=== PATIENT | male | born 1940 | race African-American/Black ===

== ENCOUNTER 2019-07-21 09:42 | Inpatient (IN) | payer MEDICARE, MEDICAID ==
[~2019-07-21] VITALS: Ht 175.3 cm; Wt 66.9 kg
[2019-07-21] MEDS ORDERED: SODIUM CHLORIDE 0.9% 1,000 ML IV ONE ×2 (09:57)
[2019-07-21] MEDS ORDERED: LIDOCAINE 1%/EPI 1:100,000 10 ML VIAL IJ ONE (10:00)
[2019-07-21] MEDS ORDERED: TETANUS, DIPHTHERIA, PERTUSSIS VAC/PF 0.5ML (>7YR OLD) IM ONE (10:00)
[2019-07-21] MEDS ORDERED: LIDOCAINE HCL/EPINEPHRINE 1%-EPI 1:100,000 20 ML VIAL INFIL NR (10:15)
[2019-07-21 10:21] LABS: BASOPHILS % 0.8 % (0.0-2.0); EOSINOPHILS % 0.5 % (0.0-5.0); HEMATOCRIT. 39.6 % (42.0-52.0); HEMOGLOBIN. 12.7 g/dL (14.0-18.0); LYMPHOCYTES % 27.9 % (20.0-50.0); MEAN CORPUSCULAR HEMOGLOBIN 26.7 pg (28.0-32.0); MEAN CORPUSCULAR VOLUME 83.1 fL (80.0-94.0); MEAN PLATELET VOLUME 8.3 fl (7.4-10.4); MONOCYTES % 6.8 % (2.0-8.0); PLATELET 196 x1000/uL (130-400); RED BLOOD CELL COUNT 4.77 mill/uL (4.7-6.1); RED CELL DISTRIBUTION WIDTH 18.7 % (11.6-14.6)
[2019-07-21 10:27] LABS: CHLORIDE 110 mEq/L (98-107)
[2019-07-21 10:28] LABS: INR 1.2; PROTHROMBIN TIME 12.7 sec (9.6-11.0)
[2019-07-21 10:31] LABS: ETHANOL BLOOD < 10 mg/dL
[2019-07-21 10:38] LABS: CREATINE KINASE 31 IU/L (39-308)
[2019-07-21 12:36] LABS: CLARITY URINE CLEAR (CLEAR); COLOR URINE YELLOW (YELLOW); KETONES URINE NEGATIVE (NEGATIVE); LEUKOCYTE ESTERASE URINE NEGATIVE (NEGATIVE); NITRITE URINE NEGATIVE (NEGATIVE); OCCULT BLOOD URINE NEGATIVE (NEGATIVE); PH URINE 6.5 (4.5-8.0); PROTEIN URINE NEGATIVE (NEGATIVE); SPECIFIC GRAVITY URINE 1.015 (1.005-1.030)
[2019-07-21 13:00] LABS: *AMPHETAMINES SCREEN URINE NEGATIVE (NEGATIVE); *BARBITURATES SCREEN URINE NEGATIVE (NEGATIVE)
[2019-07-21 13:01] LABS: *BENZODIAZEPINES SCREEN URINE NEGATIVE (NEGATIVE); CANNABINOID URINE SCREEN NEGATIVE (NEGATIVE); OPIATES URINE SCREEN NEGATIVE (NEGATIVE); PHENCYCLIDINE URINE SCREEN NEGATIVE (NEGATIVE)
[2019-07-21 13:02] LABS: *COCAINE SCREEN URINE NEGATIVE (NEGATIVE)
[2019-07-21 13:04] LABS: METHADONE URINE SCREEN NEGATIVE (NEGATIVE)
[2019-07-21] MEDS ORDERED: MORPHINE SULFATE 2 MG/ML CPJ (NOT FOR IM USE) IV PRN (14:30)
[2019-07-21] MEDS ORDERED: ONDANSETRON HCL 4MG/2ML INJ IV PRN (14:30)
[2019-07-21] MEDS ORDERED: DOCUSATE SODIUM 100MG CAPSULE PO PRN (14:30)
[2019-07-21] MEDS ORDERED: CLONIDINE 0.1MG TABLET PO PRN (14:30)
[2019-07-21] MEDS ORDERED: ACETAMINOPHEN 325MG TABLET PO PRN (14:30)
[2019-07-21] MEDS ORDERED: MAGNESIUM/ALUMINUM HYDROXIDE/SIMETHICONE 30ML UDC PO PRN (14:30)
[2019-07-21] MEDS ORDERED: HYDROCODONE/ACETAMINOPHEN 5/325MG TABLET PO PRN (14:30)
[2019-07-21] MEDS: SODIUM CHLORIDE 0.9% 1,000 ML IV SCH (14:44)
[2019-07-21 20:55] VITALS: BP 150/82
[2019-07-22] VITALS: BP 128/67
[2019-07-22] MEDS ORDERED: FERR325T6 PO (02:37)
[2019-07-22] MEDS ORDERED: DIVA-75 PO (02:37)
[2019-07-22] MEDS ORDERED: METO25TA6 PO (02:37)
[2019-07-22] MEDS ORDERED: FLUO10TA3 PO (02:37)
[2019-07-22] MEDS ORDERED: SACC250C9 PO (02:37)
[2019-07-22] MEDS ORDERED: CELE-84 PO (02:37)
[2019-07-22] MEDS ORDERED: LEVO75TA7 PO (02:37)
[2019-07-22] MEDS ORDERED: QUET200T29 PO (02:37)
[2019-07-22 04:00] VITALS: BP 128/66
[2019-07-22] MEDS: SODIUM CHLORIDE 0.9% 1,000 ML IV SCH (05:11)
[2019-07-22 07:17] LABS: BASOPHILS % 0.7 % (0.0-2.0); EOSINOPHILS % 0.8 % (0.0-5.0); HEMATOCRIT. 37.9 % (42.0-52.0); HEMOGLOBIN. 12.4 g/dL (14.0-18.0); LYMPHOCYTES % 28.8 % (20.0-50.0); MEAN CORPUSCULAR HEMOGLOBIN 27.1 pg (28.0-32.0); MEAN CORPUSCULAR VOLUME 82.7 fL (80.0-94.0); MEAN PLATELET VOLUME 8.4 fl (7.4-10.4); MONOCYTES % 8.2 % (2.0-8.0); NEUTROPHILS % 61.5 % (40.0-76.0); PLATELET 175 x1000/uL (130-400); RED BLOOD CELL COUNT 4.59 mill/uL (4.7-6.1); RED CELL DISTRIBUTION WIDTH 18.8 % (11.6-14.6)
[2019-07-22 07:57] LABS: CHLORIDE 113 mEq/L (98-107)
[2019-07-22 08:00] VITALS: BP 113/69
[2019-07-22 08:03] LABS: LDL CHOLESTEROL 54 mg/dL (5-100)
[2019-07-22 08:04] LABS: CREATINE KINASE 65 IU/L (39-308); HDL CHOLESTEROL 34 mg/dL (40-59)
[2019-07-22 08:08] LABS: CREATINE KINASE MB FRACTION < 1.0 ng/mL (0.5-3.6)
[2019-07-22 10:51] VITALS: BP 113/69
== END 2019-07-22 12:10 | disposition home or self-care (01) | DRG 314 ==
LOC: ER 09:42 → EDBEDREQ 12:31 → ENRESERV 20:17 → 7WST 20:58
PROVIDERS: ADMIT Internal Medicine; ATTEND Internal Medicine
PROC: 0HQ1XZZ Repair Face Skin, External Approach (ICD-10-PCS; principal; 2019-07-21)
DX: I95.9 Hypotension, unspecified (principal); G92 Toxic encephalopathy; G90.8 Other disorders of autonomic nervous system; S01.81XA Laceration without foreign body of other part of head, initial encounter; E03.9 Hypothyroidism, unspecified; F20.9 Schizophrenia, unspecified; F32.9 Major depressive disorder, single episode, unspecified; W18.39XA Other fall on same level, initial encounter; Y93.89 Activity, other specified; Y92.89 Other specified places as the place of occurrence of the external cause; Y99.8 Other external cause status
CPT/HCPCS: 36415; 70486; 71045; 80053; 80061; 80305; 80307; 80320; 80329; 81003; 82550; 82553; 83880; 84484; 85025; 90715; 93005; 93306; 93970; 99285; J3490; J7030; G0480

== ENCOUNTER 2022-10-06 23:35 | Inpatient (IN) | payer MEDICARE, MEDICAID ==
[~2022-10-06] VITALS: Ht 175.3 cm; Wt 62.1 kg
[~2022-10-06 23:35] MED LIST: CELE-84 PO; DIVA-75 PO; FERR325T6 PO; FLUO10TA35 PO; LEVO75TA7 PO; METO25TA6 PO; QUET200T30 PO; SACC250C9 PO
[2022-10-07] VITALS (50 sets, daily range): BP systolic 78–169; BP diastolic 35–102
[2022-10-07] MEDS ORDERED: SODIUM CHLORIDE 0.9% 1,000 ML IV ONE
[2022-10-07 00:23] LABS: BASOPHILS % 0.9 % (0.0-2.0); EOSINOPHILS % 2.1 % (0.0-5.0); HEMATOCRIT. 39.6 % (42.0-52.0); HEMOGLOBIN. 12.5 g/dL (14.0-18.0); LYMPHOCYTES % 47.1 % (20.0-50.0); MEAN CORPUSCULAR HEMOGLOBIN 25.6 pg (28.0-32.0); MEAN CORPUSCULAR VOLUME 81.3 fL (80.0-94.0); MEAN PLATELET VOLUME 8.4 fl (7.4-10.4); MONOCYTES % 9.2 % (2.0-8.0); NEUTROPHILS % 40.7 % (40.0-76.0); PLATELET 227 x1000/uL (130-400); RED BLOOD CELL COUNT 4.87 mill/uL (4.7-6.1); RED CELL DISTRIBUTION WIDTH 15.8 % (11.6-14.6)
[2022-10-07 00:29] LABS: CHLORIDE 112 mEq/L (98-107)
[2022-10-07 00:40] LABS: ETHANOL BLOOD < 10 mg/dL
[2022-10-07 01:34] LABS: INR 1.1; PROTHROMBIN TIME 11.9 sec (9.6-11.0)
[2022-10-07] MEDS ORDERED: LEVETIRACETAM 500MG PREMIX 100 ML IV ONE (05:45)
[2022-10-07] MEDS ORDERED: ONDANSETRON HCL 4MG/2ML INJ IV PRN (09:00)
[2022-10-07] MEDS ORDERED: POTASSIUM CHLORIDE INJ 40 MEQ in DEXT 5% WATER 250 ML IV ONE (09:00)
[2022-10-07] MEDS: DEXT 5%/LACTATED RINGERS 1,000 ML IV SCH (09:03)
[2022-10-07] MEDS: KCL 20MEQ/100ML X 2 FOR TOTAL KCL 40MEQ/200ML IV SCH ×2 (11:32→13:46)
[2022-10-07] MEDS: LEVETIRACETAM 500MG PREMIX 100 ML IV SCH ×2 (12:54→21:53)
[2022-10-08] VITALS (23 sets, daily range): BP systolic 117–159; BP diastolic 42–113
[2022-10-08] MEDS: DEXT 5%/LACTATED RINGERS 1,000 ML IV SCH (01:45)
[2022-10-08] MEDS: LEVETIRACETAM 500MG PREMIX 100 ML IV SCH (08:42)
[2022-10-08] MEDS ORDERED: PANTOPRAZOLE SODIUM 40 MG/VIAL IV SCH (09:00)
[2022-10-08 15:16] LABS: CLARITY URINE CLEAR (CLEAR); COLOR URINE YELLOW (YELLOW); KETONES URINE NEGATIVE (NEGATIVE); LEUKOCYTE ESTERASE URINE NEGATIVE (NEGATIVE); NITRITE URINE NEGATIVE (NEGATIVE); OCCULT BLOOD URINE NEGATIVE (NEGATIVE); PROTEIN URINE NEGATIVE (NEGATIVE); SPECIFIC GRAVITY URINE 1.008 (1.005-1.030); UROBILINOGEN URINE 0.2 E.U./dL (0.2-1.0)
== END 2022-10-08 18:35 | disposition home or self-care (01) | DRG 64 ==
LOC: ER 23:35 → EDBEDREQ 10-07 04:50 → EDBEDREQTM 10-07 04:50 → MICUSO 10-07 05:43 → EDBEDREQSVC 10-07 05:48 → ENRESERV 10-07 05:53
PROVIDERS: ADMIT Internal Medicine; ATTEND Internal Medicine
DX: I62.00 Nontraumatic subdural hemorrhage, unspecified (principal); G93.41 Metabolic encephalopathy; E44.1 Mild protein-calorie malnutrition; I95.9 Hypotension, unspecified; E87.6 Hypokalemia; Z68.20 Body mass index [BMI] 20.0-20.9, adult; D64.9 Anemia, unspecified; R00.1 Bradycardia, unspecified; E03.9 Hypothyroidism, unspecified; I10 Essential (primary) hypertension; Z87.820 Personal history of traumatic brain injury; Z97.4 Presence of external hearing-aid
CPT/HCPCS: 36415; 71045; 80053; 80320; 81003; 83605; 83880; 84484; 85025; 86850; 86900; 92610; 93005; 97161; 99291; C9113; J1953; J3480; J7030; J7121; G0480